=== PATIENT | male | born 1975 | race Two or more races ===

== ENCOUNTER 2016-12-04 19:01 | Inpatient (IN) | payer MEDICAID ==
--- NOTE | 2016-12-04 19:06 | EDPHY ---
H & P HPI/ROS: HPI CHIEF COMPLAINT: GI bleed, chest pain, benzo withdrawal, alcohol withdrawal HISTORY OF PRESENT ILLNESS: This patient is a 41-year-old male, he is incarcerated currently at senior care he was resting yesterday. He presents emergency room stating that he is going to alcohol withdrawal and benzo withdrawal. He takes Klonopin 3 times a day. His last dose was yesterday. His last drink was yesterday. Patient reports to me that he binge drinks vodka he had 2 L yesterday. Additionally he takes Klonopin for "seizures "patient reports to me that he thinks he is going through withdrawal from Klonopin as well as alcohol. Additionally reports that he vomited blood black tarry stools. He does have a history of esophageal ulcers. Patient reports to me additionally he is having some sharp stabbing left-sided chest pain. Denies hallucinations. Past Medical History: GI bleed from a esophageal ulcer, status post blood transfusion, bipolar disorder, anxiety, benzo dependent, history of alcoholism Past Surgical History: No recent surgery Social History: Binge drinks alcohol. Not a daily user. Denies illicit drugs. Family History: Noncontributory. ROS REVIEW OF SYSTEMS: A comprehensive 10 point review of systems is otherwise negative aside from elements mentioned in the history of present illness. Exam Constitutional appears nontoxic noted to be tachycardic, appears tremulous, appears to be going through withdrawal triage nursing summary reviewed, vital signs reviewed, awake/alert. Eyes normal conjunctivae and sclera, EOMI, PERRLA. HENT normal inspection, atraumatic, moist mucus membranes, no epistaxis, neck supple/ no meningismus, no raccoon eyes. Respiratory clear to auscultation bilaterally, normal breath sounds, no respiratory distress, no wheezing. Cardiovascular rate normal, regular rhythm, no murmur, no edema, distal pulses normal. Gastrointestinal soft, non-tender, no rebound, no guarding, normal bowel sounds, no distension, no pulsatile mass. Genitourinary no CVA tenderness. Musculoskeletal no midline vertebral tenderness, full range of motion, no calf swelling, no tenderness of extremities, no meningismus, good pulses, neurovascularly intact. Skin pink, warm, & dry, no rash, skin atraumatic. Neurologic anxious, tremulous, awake, alert and oriented x 3, AAOx3, moves all 4 extremities equally, motor intact, sensory intact, CN II-XII intact, normal cerebellar, normal vision, normal speech. Psychiatric normal mood/affect. Heme/Lymph/Immune no lymphadenopathy. Differential Diagnosis: Includes but is not limited to in a particular order, alcohol draw, benzo withdrawal, dehydration, electrolyte disturbance, acute coronary syndrome, GI bleed Medical Decision Making: Plan for this patient 2 large-bore IVs type and screen , EKG, chest x-ray, check troponin, rectal exam for GI bleed, basic blood work, LFTs Re-evaluation: EKG interpretation by me on record in [facility] system. Impression this is sinus tachycardia rate of 103. I do not appreciate acute ischemic change on this EKG. Unremarkable EKG. Rectal exam performed. Dark black stool. Hemoccult card sent. 2024: Patient's hemoccult test is positive. He did have black tarry stool on rectal exam. ED x-ray chest one view: Negative for acute pulmonary disease. 2034: This patient be admitted for acute GI bleed. Protonix bolus ordered. Protonix drip. Patient typed and screen. 2 IVs. I will consult GI. Additionally received 2 mg IV Ativan for benzo and alcohol draw. He is resting comfortably no complaints. Troponin is negative. Chest x-ray is unremarkable. EKG does not show any acute ischemic change. 2100: Spoke with Gastroenterology Dr. Borrero. Will plan to scope the patient. Request NPO at midnight. Source: Patient Constitutional: Initial Vital Signs Temperature (C) 37.4 C 12/04/16 19:15 Heart Rate 120 H 12/04/16 19:15 Respiratory Rate 18 12/04/16 19:15 Blood Pressure 114/93 H 12/04/16 19:15 O2 Sat (%) 93 12/04/16 19:15 O2 Delivery Mode Room Air Allergies/Adverse Reactions: aspirin Allergy (Severe, Verified 12/04/16 21:15) Lips swell/ Hives Home Medications: Medication Instructions Recorded Acetaminophen [Tylenol 325mg (*)] 325 - 650 mg PO Q6 PRN 12/04/16 Bupropion HCl [Wellbutrin Xl] 300 mg PO DAILY 12/04/16 Ferrous Sulfate [Ferrous Sulf 325 325 mg PO DAILY 12/04/16 MG (*)] Gabapentin [Gabapentin 800 mg] 1,600 mg PO BID 12/04/16 Gabapentin [Gabapentin 800 mg] 800 mg PO DAILY@12 12/04/16 LORazepam [Ativan (*)] 1 mg PO BID PRN 12/04/16 OLANZapine [Zyprexa] 10 mg PO DAILY 12/04/16 Pantoprazole Sodium [Protonix 40mg 40 mg PO DAILY 12/04/16 (*)] QUEtiapine FUMARATE [Seroquel 100 100 mg PO HS PRN 12/04/16 mg (*)] clonazePAM [Clonazepam] 2 mg PO TID 12/04/16 Medical Decision Making - Data Points Laboratory Results: Laboratory Results 12/04/16 19:12 12/04/16 19:12 12/04/16 06:10 Urine Color YELLOW Urine Appearance CLEAR Urine pH 7.0 (5.0-7.5) Ur Specific [place] 1.019 (1.002-1.030) Urine Protein NEGATIVE (NEGATIVE) Urine Ketones NEGATIVE (NEGATIVE) Urine Blood NEGATIVE (NEGATIVE) Urine Nitrate NEGATIVE (NEGATIVE) Urine Bilirubin NEGATIVE (NEGATIVE) Urine Urobilinogen NEGATIVE EU EU (0.2-1.0) Ur Leukocyte Esterase NEGATIVE (NEGATIVE) Urine Glucose NEGATIVE (NEGATIVE) Medications Given: Folic Acid (Folic Acid) 1 mg PO DAILY MARLEN Stop: 06/03/17 08:59 Last Admin: 12/05/16 09:35 Dose: 1 mg Gabapentin (Neurontin) 800 mg PO DAILY@1200 [facility] Stop: 06/03/17 11:59 Last Admin: 12/05/16 12:24 Dose: 800 mg Gabapentin (Neurontin) 1,600 mg PO BID MARLEN Stop: 06/03/17 09:29 Last Admin: 12/05/16 09:44 Dose: 1,600 mg Sodium Chloride (Ns) 1,000 mls @ 100 mls/hr IV CONT MARLEN Stop: 06/02/17 22:14 Last Admin: 12/05/16 09:37 Dose: 1,000 mls Pantoprazole Sodium 80 mg/ (Sodium Chloride) 100 mls @ 10 mls/hr IV Q10H [facility]LEN Stop: 06/03/17 09:14 Last Admin: 12/05/16 09:37 Dose: 100 mls Lorazepam (Ativan Injection) 1 mg IVP Q4HRS PRN PRN Reason: Agitation Stop: 06/02/17 22:04 Last Admin: 12/04/16 23:39 Dose: 1 mg Lorazepam (Ativan) 1 mg PO Q4HRS PRN PRN Reason: Agitation if able to take PO Stop: 06/02/17 22:04 Last Admin: 12/05/16 09:45 Dose: 1 mg Multivitamins (Tab-A-Marcos) 1 each PO DAILY MARLEN Stop: 06/03/17 08:59 Last Admin: 12/05/16 09:35 Dose: 1 each Ondansetron HCl (Zofran Odt) 4 mg PO Q4HRS PRN PRN Reason: Nausea/Vomiting, Use 1st Stop: 06/02/17 22:02 Last Admin: 12/04/16 23:39 Dose: 4 mg Thiamine HCl (Vitamin B-1) 100 mg PO DAILY MARLEN Stop: 06/02/17 22:14 Last Admin: 12/05/16 09:35 Dose: 100 mg Discontinued Medications Sodium Chloride (Ns) 1,000 mls @ 0 mls/hr IV EDNOW ONE; Wide Open PRN Reason: Protocol Stop: 12/04/16 19:22 Last Admin: 12/04/16 19:33 Dose: 1,000 mls Pantoprazole Sodium 80 mg/ (Sodium Chloride) 100 mls @ 10 mls/hr IV Q10H MARLEN Stop: 06/02/17 20:29 Last Admin: 12/05/16 09:54 Dose: Not Given Lorazepam (Ativan Injection) 1 mg IVP EDNOW ONE Stop: 12/04/16 19:22 Last Admin: 12/04/16 19:34 Dose: 1 mg Lorazepam (Ativan Injection) 1 mg IVP EDNOW ONE Stop: 12/04/16 19:27 Last Admin: 12/04/16 19:34 Dose: 1 mg Lorazepam (Ativan Injection) 1 mg IVP EDNOW ONE Stop: 12/04/16 20:40 Last Admin: 12/04/16 21:00 Dose: Not Given Ondansetron HCl (Zofran) 4 mg IVP EDNOW ONE Stop: 12/04/16 19:23 Last Admin: 12/04/16 19:34 Dose: 4 mg Pantoprazole Sodium (Protonix) 40 mg IVP EDNOW ONE Stop: 12/04/16 20:26 Last Admin: 12/04/16 20:44 Dose: 40 mg Pantoprazole Sodium (Protonix) 40 mg IVP BID MARLEN Stop: 06/03/17 08:59 Last Admin: 12/05/16 09:53 Dose: Not Given Departure - Departure Disposition: [facility] Inpatient Acute Clinical Impression: Anxiety Benzodiazepine withdrawal Qualifiers: Complication of substance-induced condition: uncomplicated Qualified Code(s): F13.230 - Sedative, hypnotic or anxiolytic dependence with withdrawal, uncomplicated Alcohol withdrawal Qualifiers: Complication of substance-induced condition: uncomplicated Qualified Code(s): F10.230 - Alcohol dependence with withdrawal, uncomplicated GI bleed Qualifiers: GI bleed type/associated pathology: melena Qualified Code(s): K92.1 - Melena Condition: Fair
--- NOTE | 2016-12-04 19:08 | CPEKG ---
Heart Rate: 103 RR Interval: 583 P-R Interval: 156 QRSD Interval: 96 QT Interval: 324 QTC Interval: 424 P [place]: 37 QRS [place]: 57 T Wave [place]: 8 EKG Severity - OTHERWISE NORMAL ECG - EKG Impression: SINUS TACHYCARDIA Electronically Signed By: Robert Kenny 05-Dec-2016 03:00:34
[2016-12-04] MEDS ORDERED: LORazepam 2 MG/ML INJ IVP ONE ×3 (19:21→20:39)
[2016-12-04] MEDS ORDERED: NS 1,000 ML IV ONE (19:21)
[2016-12-04] MEDS ORDERED: ONDANSETRON 4 MG/2 ML VIAL IVP ONE (19:22)
[2016-12-04 19:30] LABS: % IMMATURE GRANULYOCYTES 0.5 % (0.0-1.1); ABSOLUTE IMMATURE GRANULOCYTES 0.07 10^3/uL (0.00-0.10); ADD DIFF? NO; ADD MORPH? NO; ADD SCAN? NO; ATYPICAL LYMPHOCYTE FLAG 10 (0-99); FRAGMENT RBC FLAG 0 (0-99); HEMATOCRIT 36.2 % (40.0-51.0); HEMOGLOBIN 12.4 g/dL (13.7-17.5); LEFT SHIFT FLG 0 (0-99); LIPEMIA HEMOLYSIS FLAG 90 (0-99); MEAN CELL HEMOGLOBIN 30.1 pg (27.9-34.1); MEAN CELL HEMOGLOBIN CONCENTR. 34.3 g/dL (32.4-36.7); MEAN CELL VOLUME 87.9 fL (81.5-99.8); MEAN PLATELET VOLUME 10.6 fL (8.7-11.7); PLATELET CLUMPS FLAG 10 (0-99); PLATELET COUNT 299 10^3/uL (150-400); RED BLOOD CELL COUNT 4.12 10^6/uL (4.40-6.38); RED CELL DISTRIBUTION WIDTH 15.9 % (11.5-15.2)
[2016-12-04 19:41] LABS: INR 0.99 (0.83-1.16)
[2016-12-04 19:42] LABS: APTT 23.9 SEC (23.0-38.0)
[2016-12-04 19:44] LABS: ALANINE AMINOTRANSFERASE 40 IU/L (21-72); ALKALINE PHOSPHATASE 209 IU/L (38-126); ANION GAP 17 mEq/L (8-16); ASPARTATE AMINOTRANSFERASE 24 IU/L (17-59); BILIRUBIN,TOTAL 0.4 mg/dL (0.1-1.4); BILIRUBIN-CONJUGATED 0.1 mg/dL (0.0-0.5); BILIRUBIN-UNCONJUGATED 0.3 mg/dL (0.0-1.1); CALCIUM 9.9 mg/dL (8.5-10.4); CARBON DIOXIDE 24 mEq/l (22-31); CHLORIDE 104 mEq/L (97-110); CREATININE 0.8 mg/dL (0.7-1.3); GLOMERULAR FILTRATION RATE > 60; GLUCOSE 100 mg/dL (70-100); POTASSIUM 4.4 mEq/L (3.5-5.2); SODIUM 145 mEq/L (134-144); TOTAL PROTEIN 7.9 g/dL (6.3-8.2)
[2016-12-04 19:54] LABS: TROPONIN I < 0.012 ng/mL (0.000-0.034)
[2016-12-04] MEDS ORDERED: PANTOPRAZOLE SODIUM 40 MG VIAL IVP ONE (20:25)
[2016-12-04] MEDS: PANTOPRAZOLE SODIUM 80 MG in NS 100 ML IV SCH (21:40)
[2016-12-04] MEDS ORDERED: ONDANSETRON DISINTEGRATING 4 MG TAB PO PRN (22:03)
[2016-12-04] MEDS ORDERED: ONDANSETRON 4 MG/2 ML VIAL IVP PRN (22:03)
[2016-12-04] MEDS ORDERED: ACETAMINOPHEN 325 MG TAB PO PRN (22:03)
[2016-12-04] MEDS ORDERED: oxyCODONE IR 5 MG TAB PO PRN (22:03)
[2016-12-04] MEDS: THIAMINE HCL 100 MG TAB PO SCH (22:38)
[2016-12-04] MEDS: NS 1,000 ML IV SCH (22:38)
[2016-12-04] MEDS: LORazepam 1 MG TAB PO PRN (22:38)
[2016-12-04] MEDS: LORazepam 2 MG/ML INJ IVP PRN (23:39)
--- NOTE | 2016-12-05 00:07 | PDGENHP ---
History and Physical - Chief Complaint Shaking - History of Present Illness 41 yo M w/ BPD, anxiety, and ETOH abuse presents to ED with shaking. Patient was incarcerated on day of admission and did not have access to his usual medications. He takes Klonopin three times daily and began to note tremulousness just a few hours after going without it. Additionally, he binges ETOH when dealing with social stressors. He drank 2-3 L of vodka each day for the 2 days prior to presentation, which worsened his chronic GI issues. Patient reports hx of esophageal ulcers and occasional melena for 3 years. Melena and hematemesis developed over the last 2 days in the setting of his ETOH binge. Patient is currently asymptomatic aside from mild tremulousness. History Information - Allergies/Home Medication List Allergies/Adverse Reactions: aspirin Allergy (Severe, Verified 12/04/16 21:15) Lips swell/ Hives Home Medications: Acetaminophen [Tylenol 325mg (*)] 325 - 650 mg PO Q6 PRN 12/04/16 [Last Taken Unknown] Bupropion HCl [Wellbutrin Xl] 300 mg PO DAILY 12/04/16 [Last Taken 12/02/16] Ferrous Sulfate [Ferrous Sulf 325 MG (*)] 325 mg PO DAILY 12/04/16 [Last Taken 12/02/16] Gabapentin [Gabapentin 800 mg] 1,600 mg PO BID 12/04/16 [Last Taken 12/02/16] Gabapentin [Gabapentin 800 mg] 800 mg PO DAILY@12 12/04/16 [Last Taken 12/02/16] LORazepam [Ativan (*)] 1 mg PO BID PRN 12/04/16 [Last Taken Unknown] OLANZapine [Zyprexa] 10 mg PO DAILY 12/04/16 [Last Taken 12/02/16] Pantoprazole Sodium [Protonix 40mg (*)] 40 mg PO DAILY 12/04/16 [Last Taken ] QUEtiapine FUMARATE [Seroquel 100 mg (*)] 100 mg PO HS PRN 12/04/16 [Last Taken 12/02/16] clonazePAM [Clonazepam] 2 mg PO TID 12/04/16 [Last Taken 12/02/16] I have personally reviewed and updated: family history, medical history - Past Medical History Additional medical history: Bipolar disorder. Esophageal ulcers. Anxiety - Family History Additional family history: Adopted, does not know - Social History Smoking Status: Never smoked Alcohol Use: Heavy Review of Systems Review of Systems: ROS: 10pt was reviewed & negative except for what was stated in HPI & below Physical Exam Physical Exam: Temp Pulse Resp BP Pulse Ox 37.2 C 104 H 16 130/96 H 93 12/04/16 21:44 12/04/16 21:44 12/04/16 21:44 12/04/16 21:44 12/04/16 21:44 Constitutional: no apparent distress, not in pain Eyes: PERRL, EOMI Ears, Nose, Mouth, Throat: moist mucous membranes, no oral mucosal ulcers Cardiovascular: regular rate and rhythym, no murmur, rub, or gallop Respiratory: no respiratory distress, no rales or rhonchi Gastrointestinal: normoactive bowel sounds, soft, non-tender abdomen Skin: warm, normal color Musculoskeletal: full muscle strength, no muscle tenderness Neurologic: AAOx3, CN II-XII Intact, other (Mild UE fine tremor) Psychiatric: interacting appropriately, not anxious Lab Data & Imaging Review 12/04/16 19:12 12/04/16 19:12 WBC 14.10 10^3/uL (3.80-9.50) H 12/04/16 19:12 RBC 4.12 10^6/uL (4.40-6.38) L 12/04/16 19:12 Hgb 12.4 g/dL (13.7-17.5) L 12/04/16 19:12 Hct 36.2 % (40.0-51.0) L 12/04/16 19:12 MCV 87.9 fL (81.5-99.8) 12/04/16 19:12 MCH 30.1 pg (27.9-34.1) 12/04/16 19:12 MCHC 34.3 g/dL (32.4-36.7) 12/04/16 19:12 RDW 15.9 % (11.5-15.2) H 12/04/16 19:12 Plt Count 299 10^3/uL (150-400) 12/04/16 19:12 MPV 10.6 fL (8.7-11.7) 12/04/16 19:12 Neut % (Auto) 71.9 % (39.3-74.2) 12/04/16 19:12 Lymph % (Auto) 18.9 % (15.0-45.0) 12/04/16 19:12 [place] % (Auto) 7.2 % (4.5-13.0) 12/04/16 19:12 Eos % (Auto) 0.6 % (0.6-7.6) 12/04/16 19:12 Baso % (Auto) 0.9 % (0.3-1.7) 12/04/16 19:12 Nucleat RBC Rel Count 0.0 % (0.0-0.2) 12/04/16 19:12 Absolute Neuts (auto) 10.14 10^3/uL (1.70-6.50) H 12/04/16 19:12 Absolute Lymphs (auto) 2.66 10^3/uL (1.00-3.00) 12/04/16 19:12 Absolute Monos (auto) 1.02 10^3/uL (0.30-0.80) H 12/04/16 19:12 Absolute Eos (auto) 0.08 10^3/uL (0.03-0.40) 12/04/16 19:12 Absolute Basos (auto) 0.13 10^3/uL (0.02-0.10) H 12/04/16 19:12 Absolute Nucleated RBC 0.00 10^3/uL (0-0.01) 12/04/16 19:12 Immature Gran % 0.5 % (0.0-1.1) 12/04/16 19:12 Immature Gran # 0.07 10^3/uL (0.00-0.10) 12/04/16 19:12 PT 13.0 SEC (12.0-15.0) 12/04/16 19:12 INR 0.99 (0.83-1.16) 12/04/16 19:12 APTT 23.9 SEC (23.0-38.0) 12/04/16 19:12 Sodium 145 mEq/L (134-144) H 12/04/16 19:12 Potassium 4.4 mEq/L (3.5-5.2) 12/04/16 19:12 Chloride 104 mEq/L (97-110) 12/04/16 19:12 Carbon Dioxide 24 mEq/l (22-31) 12/04/16 19:12 Anion Gap 17 mEq/L (8-16) H 12/04/16 19:12 BUN 17 mg/dL (7-23) 12/04/16 19:12 Creatinine 0.8 mg/dL (0.7-1.3) 12/04/16 19:12 Estimated GFR > 60 12/04/16 19:12 Glucose 100 mg/dL (70-100) 12/04/16 19:12 Calcium 9.9 mg/dL (8.5-10.4) 12/04/16 19:12 Total Bilirubin 0.4 mg/dL (0.1-1.4) 12/04/16 19:12 Conjugated Bilirubin 0.1 mg/dL (0.0-0.5) 12/04/16 19:12 Unconjugated Bilirubin 0.3 mg/dL (0.0-1.1) 12/04/16 19:12 AST 24 IU/L (17-59) 12/04/16 19:12 ALT 40 IU/L (21-72) 12/04/16 19:12 Alkaline Phosphatase 209 IU/L (38-126) H 12/04/16 19:12 Troponin I < 0.012 ng/mL (0.000-0.034) 12/04/16 19:12 Total Protein 7.9 g/dL (6.3-8.2) 12/04/16 19:12 Albumin 4.0 g/dL (3.5-5.0) 12/04/16 19:12 Lipase 117 IU/L (23-300) 12/04/16 19:12 Stool Occult Bld Scrn POSITIVE (NEGATIVE) H 12/04/16 19:35 Patient ABO/Rh O POSITIVE 12/04/16 19:27 Antibody Screen NEGATIVE 12/04/16 19:27 Visualized and Interpreted Chest x-ray results: Yes Chest X-Ray results: no infiltrate Visualized and Interpreted EKG results: Yes EKG Interpretation: Positive for: other (Sinus tachycardia) Assessment & Plan Assessment: 41 yo M w/ hx of BPD, anxiety, ETOH abuse, and esophageal ulcers presents with BZD withdrawal and GIB. Plan: 1. UGIB - Suspect upper GI source based on hematemesis, melena, and hx of esophageal ulcers. Patient has hx of chronic blood loss but this has worsened over the last 2 days in setting of ETOH binge. - PPI IV BID, mIVF, monitor on telemetry - Maintain NPO, GI consulted for likely EGD tomorrow 2. BZD withdrawal - Symptoms started shortly after not having access to his three times daily Klonopin. We discussed at length the need for him to transition to a different strategy for management of his anxiety. - [facility] protocol - Consider long acting BZD to help wean Klonopin 3. 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 He takes Seroquel, Wellbutrin, and Zyprexa as an outpatient as well as frequent BZDs, which should be phased out of his regimen when possible. 4. Anemia -Mild, 2/2 acute and chronic blood loss. Patient on oral iron, will check ferritin with morning labs. 5. Leukocytosis - Likely reactive 2/2 GIB, monitor. Diet - NPO Ppx - SCDs Code - Full Dispo - Admit to inpatient status noting need for GI evaluation, EGD, and treatment for withdrawal.
[2016-12-05] MEDS: LORazepam 1 MG TAB PO PRN ×4 (04:46→19:32)
[2016-12-05 05:02] LABS: % IMMATURE GRANULYOCYTES 0.3 % (0.0-1.1); ABSOLUTE IMMATURE GRANULOCYTES 0.03 10^3/uL (0.00-0.10); ADD DIFF? NO; ADD MORPH? NO; ADD SCAN? NO; ATYPICAL LYMPHOCYTE FLAG 10 (0-99); FRAGMENT RBC FLAG 0 (0-99); HEMATOCRIT 31.6 % (40.0-51.0); HEMOGLOBIN 10.6 g/dL (13.7-17.5); LEFT SHIFT FLG 0 (0-99); LIPEMIA HEMOLYSIS FLAG 80 (0-99); MEAN CELL HEMOGLOBIN CONCENTR. 33.5 g/dL (32.4-36.7); MEAN CELL VOLUME 89.5 fL (81.5-99.8); MEAN PLATELET VOLUME 10.3 fL (8.7-11.7); PLATELET CLUMPS FLAG 0 (0-99); PLATELET COUNT 238 10^3/uL (150-400); RED BLOOD CELL COUNT 3.53 10^6/uL (4.40-6.38); RED CELL DISTRIBUTION WIDTH 15.9 % (11.5-15.2)
[2016-12-05 05:17] LABS: ALANINE AMINOTRANSFERASE 33 IU/L (21-72); ALBUMIN 3.2 g/dL (3.5-5.0); ALKALINE PHOSPHATASE 164 IU/L (38-126); ANION GAP 11 mEq/L (8-16); ASPARTATE AMINOTRANSFERASE 16 IU/L (17-59); BILIRUBIN,TOTAL 0.6 mg/dL (0.1-1.4); CALCIUM 8.5 mg/dL (8.5-10.4); CARBON DIOXIDE 26 mEq/l (22-31); CHLORIDE 103 mEq/L (97-110); CREATININE 0.8 mg/dL (0.7-1.3); GLOMERULAR FILTRATION RATE > 60; GLUCOSE 79 mg/dL (70-100); MAGNESIUM 1.7 mg/dL (1.6-2.3); POTASSIUM 4.2 mEq/L (3.5-5.2); SODIUM 140 mEq/L (134-144)
--- NOTE | 2016-12-05 05:20 | PDMN ---
Medical Necessity Medical necessity: C/M review: Patient meets INPT criteria under MCG M-180 Gastrointestinal Bleeding, Upper, M-595 Substance-Related Disorders; Acute upper GI bleed, acute benzodiazepine withdrawal, hematemesis, anemia, Hgb 12.4, 10.6, Hct 36.2, 31.6, leukocytosis, WBC 14.10 requiring planned GI consult, likely 12/05/2016 EGD, ongoing NPO, IV Pantoprazole infusion, IV fluids, comorbid bipolar disorder, not having access to chronic Klonopin, ETOH abuse, anxiety, hx esophageal ulcers. anticipates > 2 MN LOS for ongoing med nec for eval and TX of above.
[2016-12-05 05:50] LABS: FERRITIN - BCH 18.9 ng/mL (17.9-464.0)
[2016-12-05 06:24] LABS: COLOR YELLOW; LEUKOCYTE ESTERASE,URINE NEGATIVE (NEGATIVE); NITRITE,URINE NEGATIVE (NEGATIVE)
[2016-12-05] MEDS ORDERED: PANTOPRAZOLE SODIUM 40 MG VIAL IVP SCH (09:00)
[2016-12-05] MEDS ORDERED: PANTOPRAZOLE SODIUM 80 MG in NS 100 ML IV SCH (09:15)
[2016-12-05] MEDS ORDERED: QUEtiapine FUMARATE 100 MG TAB PO PRN ×2 (09:18→12:50)
[2016-12-05] MEDS: MULTIVITAMINS 1 EACH TAB PO SCH (09:35)
[2016-12-05] MEDS: FOLIC ACID 1 MG TAB PO SCH (09:35)
[2016-12-05] MEDS: THIAMINE HCL 100 MG TAB PO SCH (09:35)
[2016-12-05] MEDS: NS 1,000 ML IV SCH ×2 (09:37→19:32)
[2016-12-05] MEDS: GABAPENTIN 400 MG CAP PO SCH ×3 (09:44→19:32)
[2016-12-05] MEDS: PANTOPRAZOLE SODIUM 80 MG in NS 100 ML IV SCH ×2 (09:54→18:13)
--- NOTE | 2016-12-05 11:54 | HOSPPROG ---
Hospitalist Progress Note Assessment/Plan: First encounter with this patient 41 yo male with recent incarceration, hx of alcoholism, admitted for UGIB #UGIB #Acute blood loss Anemia #Acute ETOH WD #Hx of SZ when actively wd from ETOH #Anxiety d/o #bipolar disorder Plan: NPO Scope per GI today. Dr. Borrero to see Cont Protonix Drip IVF CIWA/Ativan Thiamine, Folic Acid, MVI SCD's Full Code Subjective: no further emesis or melena. He is tremulous. no CP or SOB Objective: Vital Signs Temp Pulse Resp BP Pulse Ox 37.3 C 85 17 142/91 H 91 L 12/05/16 08:00 12/05/16 08:00 12/05/16 08:00 12/05/16 08:00 12/05/16 08:00 Laboratory Results 12/05/16 04:46 12/05/16 04:46 12/04/16 12/05/16 12/06/16 05:59 05:59 05:59 Intake Total 2070 Output Total 1100 725 Balance 970 -725 PT 13.0 SEC (12.0-15.0) 12/04/16 19:12 INR 0.99 (0.83-1.16) 12/04/16 19:12 - Physical Exam Constitutional: no apparent distress Eyes: PERRL, EOMI Ears, Nose, Mouth, Throat: moist mucous membranes, hearing normal Cardiovascular: tachycardia, No edema Respiratory: no respiratory distress, no rales or rhonchi Gastrointestinal: normoactive bowel sounds, soft, non-tender abdomen Skin: warm Musculoskeletal: full muscle strength Neurologic: AAOx3 Psychiatric: interacting appropriately, not encephalopathic, thought process linear, anxious ICD10 Worksheet Patient Problems: Problems Problem Status Onset Alcohol withdrawal Acute Anxiety Acute Benzodiazepine withdrawal Acute GI bleed Acute
--- NOTE | 2016-12-05 14:46 | GCON ---
[f rep st] CONSULTATION GASTROINTESTINAL CONSULTATION. DATE OF CONSULTATION: 12/05/2016 REASON FOR CONSULTATION: Hematemesis and melena. HISTORY OF PRESENT ILLNESS: The patient is a 41-year-old gentleman who I was asked to consult on by Dr Longo who was admitted to the hospital last night with an episode of melena and hematemesis of blood clots. He was incarcerated on the day of admission and does have a history of drinking 2-3 L of vodka each day over the last several days prior to his presentation. He does have a history of esophageal ulcers documented on EGD 3 years ago. He has no history of esophageal varices or alcoholic liver disease. He states that he did have black tarry stools 2 days prior to the admission. He does complain of tremulousness this morning as he did on admission. MEDICATIONS: Prior to admission included: Clonazepam 2 mg p.o. t.i.d., Seroquel 100 mg p.o. q.h.s., Protonix 40 mg p.o. daily, Zyprexa 10 mg p.o. daily , lorazepam 1 mg p.o. b.i.d. p.r.n. anxiety, gabapentin 1600 mg p.o. b.i.d., ferrous sulfate 325 mg p.o. daily, Wellbutrin XL 300 mg p.o. daily. ALLERGIES: Aspirin which causes swelling of his lips and hives. PAST MEDICAL HISTORY: Significant for bipolar affective disorder, history of esophageal ulcerations, anxiety, and alcoholism with binge drinking. FAMILY HISTORY: He is adopted. He does not know his biologic family. SOCIAL HISTORY: He does not smoke tobacco. He does consume alcohol regularly though tends to binge drink. He denies any NSAID use. REVIEW OF SYSTEMS: Negative for comprehensive review of systems with the exception of recent hematemesis and black tarry stool, nausea and vomiting. PHYSICAL EXAMINATION: VITAL SIGNS: On my examination today, temperature was 37.2 Celsius, pulse was 79 and regular, blood pressure 144/89, respiratory rate was 18, O2 saturation 91% on room air. GENERAL: He is a well-developed, well- nourished man looking uncomfortable, slightly agitated and tremulous. INTEGUMENT: Clear. No pedal edema. HEENT: Head atraumatic, normocephalic. Pupils equal, round, reactive to light. EOMs intact. Sclerae nonicteric. Nares patent. Mucous membranes moist. Dentition good. NECK: Supple. Trachea was midline. PULMONARY: Lungs clear to percussion and auscultation. CARDIOVASCULAR: Regular rhythm and rate. Normal S1, S2 without murmur. Peripheral pulses strong bilaterally. No pedal edema. GASTROINTESTINAL: Abdomen supple, positive bowel sounds. No liver, spleen tip palpable. No masses or tenderness noted. No fluid wave noted. EXTREMITIES: Without deformity. NEURO: Patient was alert and oriented x3. There were no focal neurologic deficits. Patient was tremulous to exam. LABS: Hemoglobin on admission 12.4, hematocrit 36.2, white count 14.10. With hydration, hemoglobin 10.6, hematocrit 31.6, white count 9.28, RDW elevated at 15.9, platelets 238,000. Pro time 13.0, INR 0.11. Electrolytes normal with a BUN of 14, creatinine of 0.8. AST 16, ALT 33, ALP 164, total bilirubin 0.4, albumin 3.2, lipase 117. Urinalysis normal. Stool was Hemoccult positive. IMPRESSION: 1. Recent acute upper gastrointestinal bleed with hematemesis and melena with a 2 g drop in hemoglobin, now without active GI bleeding today. Differential diagnosis includes alcoholic gastritis versus recurrent esophageal ulcers. Less likely would be esophageal variceal bleed as the patient has had no documented varices in the past. 2. Acute alcoholic binge episode with patient now observed as tremulous, worrisome for alcohol withdrawal syndrome. 3. Normal liver enzymes and pro time, making less likely the patient has [place] cirrhosis. RECOMMENDATIONS: 1. N.p.o., could give clear liquids later today if no evidence of further GI bleeding. 2. Continue with IV PPI drip. 3. Will wait 24 hours to assess for the development of florid DTs (this would make endoscopy higher risk at this time). 4. N.p.o. after midnight. 5. Esophagogastroduodenoscopy in the a.m. with propofol anesthesia, could perform this urgently today if patient has further episodes of bleeding. /[id number]/MODL MTDD
--- NOTE | 2016-12-05 15:35 | ASMTCMCOM ---
CM Note CM Note Notes: 41 year old male admitted for GIB, ETOH W/D, Benzo W/D. He has a hx of Bipolar diso,Anxiety, ETOH abuse, Esophageal ulcers, melana. Patient had been incarcerated and didn't have access to his medications and needed to be admitted. CM to follow for discharge needs. Date Signed: 12/05/2016 03:34 PM Electronically Signed By:Claudia Brink LCSW
[2016-12-06 04:27] LABS: % IMMATURE GRANULYOCYTES 0.2 % (0.0-1.1); ABSOLUTE IMMATURE GRANULOCYTES 0.01 10^3/uL (0.00-0.10); ADD DIFF? NO; ADD MORPH? NO; ADD SCAN? NO; ATYPICAL LYMPHOCYTE FLAG 10 (0-99); FRAGMENT RBC FLAG 0 (0-99); HEMATOCRIT 32.1 % (40.0-51.0); HEMOGLOBIN 10.4 g/dL (13.7-17.5); LEFT SHIFT FLG 0 (0-99); LIPEMIA HEMOLYSIS FLAG 80 (0-99); MEAN CELL HEMOGLOBIN 29.3 pg (27.9-34.1); MEAN CELL HEMOGLOBIN CONCENTR. 32.4 g/dL (32.4-36.7); MEAN CELL VOLUME 90.4 fL (81.5-99.8); MEAN PLATELET VOLUME 10.4 fL (8.7-11.7); PLATELET CLUMPS FLAG 20 (0-99); PLATELET COUNT 221 10^3/uL (150-400); RED BLOOD CELL COUNT 3.55 10^6/uL (4.40-6.38); RED CELL DISTRIBUTION WIDTH 15.5 % (11.5-15.2)
[2016-12-06] MEDS: PANTOPRAZOLE SODIUM 80 MG in NS 100 ML IV SCH (07:36)
[2016-12-06] MEDS: LORazepam 2 MG/ML INJ IVP PRN ×2 (07:36→07:42)
[2016-12-06] MEDS ORDERED: buPROPion XL 150 MG TAB PO SCH (09:00)
[2016-12-06] MEDS ORDERED: OLANZapine 10 MG TAB PO SCH (09:00)
[2016-12-06] MEDS ORDERED: FERROUS SULFATE 325 MG TAB PO SCH (09:00)
--- NOTE | 2016-12-06 10:04 | PDANEPAE ---
ANE History of Present Illness 41 year old male w/ PMHx of EtoH abuse, likely upper GI bleed, anemia, anxiety needing upper endoscopy with anesthesia. ANE Past Medical History - Cardiovascular History Hx Hypertension: No Hx Arrhythmias: No Hx Chest Pain: No Hx Coronary Artery / Peripheral Vascular Disease: No Hx CHF / Valvular Disease: No Hx Palpitations: No - Pulmonary History Hx COPD: No Hx Asthma/Reactive Airway Disease: No Hx Recent Upper Respiratory Infection: No Hx Oxygen in Use at Home: No Hx Sleep Apnea: No Sleep Apnea Screening Result - Last Documented: Negative - Endocrine History Hx Diabetes: No Hypothyroid: No Hyperthyroid: No Obesity: yes, mild - Renal History Hx Renal Disorders: No - Liver History Hx Hepatic Disorders: No - Neurological & Psychiatric Hx Neurological / Psychiatric History Comment: Anxiety - GI History Hx Gastrointestinal Disorders: Yes Gastrointestinal History Comment: PUD / Espophageal ulcer, Upper GI bleed ANE Review of Systems Review of systems is: negative Review of Systems: - Exercise capacity Exercise capacity: >=4 METS ANE Patient History - Allergies Allergies/Adverse Reactions: aspirin Allergy (Severe, Verified 12/04/16 21:15) Lips swell/ Hives - Home Medications Home medications: home medication list seen and reviewed Home Medications: Acetaminophen [Tylenol 325mg (*)] 325 - 650 mg PO Q6 PRN 12/04/16 [Last Taken Unknown] Bupropion HCl [Wellbutrin Xl] 300 mg PO DAILY 12/04/16 [Last Taken 12/02/16] Ferrous Sulfate [Ferrous Sulf 325 MG (*)] 325 mg PO DAILY 12/04/16 [Last Taken 12/02/16] Gabapentin [Gabapentin 800 mg] 1,600 mg PO BID 12/04/16 [Last Taken 12/02/16] Gabapentin [Gabapentin 800 mg] 800 mg PO DAILY@12 12/04/16 [Last Taken 12/02/16] LORazepam [Ativan (*)] 1 mg PO BID PRN 12/04/16 [Last Taken Unknown] OLANZapine [Zyprexa] 10 mg PO DAILY 12/04/16 [Last Taken 12/02/16] Pantoprazole Sodium [Protonix 40mg (*)] 40 mg PO DAILY 12/04/16 [Last Taken ] QUEtiapine FUMARATE [Seroquel 100 mg (*)] 100 mg PO HS PRN 12/04/16 [Last Taken 12/02/16] clonazePAM [Clonazepam] 2 mg PO TID 12/04/16 [Last Taken 12/02/16] - NPO status NPO Status: no food or drink >8 hours - Anes Hx Anes Hx: no prior problems - Smoking Hx Smoking Status: Never smoked - Alcohol Use Alcohol Use: Heavy - Family Anes Hx Family Anes Hx: neg - N/A ANE Labs/Vital Signs - Labs Result Diagrams: 12/06/16 04:06 12/05/16 04:46 - Vital Signs Vital Signs: reviewed preoperatively; see RN documention for details Blood Pressure: 116/86 Heart Rate: 85 Respiratory Rate: 18 O2 Sat (%): 93 Height: 180.34 cm Weight: 98.1 kg ANE Physical Exam - Airway Neck exam: FROM Mallampati Score: Class 2 Mouth exam: normal dental/mouth exam Mouth image: 1 - Capped - Pulmonary Pulmonary: no respiratory distress - Cardiovascular Cardiovascular: regular rate and rhythym - ASA Status ASA Status: II ANE Anesthesia Plan Anesthesia Plan: GA with mask Total IV Anesthesia: Yes
[2016-12-06] MEDS ORDERED: PROPOFOL/EMULSION 500 MG/50 ML BOTTLE IV ONE (10:26)
[2016-12-06] MEDS ORDERED: MIDAZOLAM 2 MG/2 ML VIAL ONE (10:31)
[2016-12-06] MEDS ORDERED: DEXAMETHASONE 4 MG/ML VIAL ONE (10:33)
[2016-12-06] MEDS ORDERED: ONDANSETRON 4 MG/2 ML VIAL ONE (10:33)
[2016-12-06] MEDS ORDERED: fentaNYL 100 MCG/2 ML INJ IVP PRN (10:36)
[2016-12-06] MEDS ORDERED: NALOXONE HCL 0.4 MG/ML INJ IVP PRN (10:36)
[2016-12-06] MEDS ORDERED: LR 500 ML IV PRN (10:36)
--- NOTE | 2016-12-06 11:06 | GIREPORT ---
[facility] Surgical Services - Endoscopy Department Patient Name: Sadiq Jaramillo Procedure Date: 12/06/2016 10:27 AM Patient Type: Inpatient Attending MD/ ER Physician: Trae Borrero MD Procedure: Upper GI endoscopy Indications: Hematemesis, Melena, Acute post hemorrhagic anemia, Nausea with vomitin g Providers: Trae Borrero MD Medicines: Monitored Anesthesia Care Complications: No immediate complications. Description of Procedure: After obtaining informed consent, the endoscope was passed under direct vision. Throughout the procedure, the patient's blood pressure, pulse, and oxygen saturations were monitored continuously. The Endoscope was intro duced through the mouth, and advanced to the second part of duodenum. The [facility] er GI endoscopy was accomplished without difficulty. The patient tolerated th e procedure well. Findings: One superficial esophageal ulcer with no bleeding and no stigmata of re cent bleeding was found at the gastroesophageal junction. The lesion was 10 mm in largest dimension. The entire examined stomach was normal. The examined duodenum was normal. Estimated Blood Loss: Estimated blood loss: none. Post Op Diagnosis: - Non-bleeding esophageal ulcer. - Normal stomach. - Normal examined duodenum. - No specimens collected. Recommendation: - Return patient to hospital poe for possible discharge same day. - Advance diet as tolerated today. - Use Protonix (pantoprazole) 40 mg PO BID for 2 months. Attending Participation: I personally performed the entire procedure. Trae Borrero MD Trae Borrero MD 12/06/2016 11:06:02 AM This report has been signed electronicallyTrae Borrero MD Number of Addenda: 0 Note Initiated On: 12/06/2016 10:27 AM [email or web address]
[2016-12-06] MEDS: GABAPENTIN 400 MG CAP PO SCH ×2 (11:58→12:00)
[2016-12-06] MEDS: THIAMINE HCL 100 MG TAB PO SCH (11:59)
[2016-12-06] MEDS: MULTIVITAMINS 1 EACH TAB PO SCH (11:59)
[2016-12-06] MEDS: FOLIC ACID 1 MG TAB PO SCH (11:59)
[2016-12-06] MEDS: LORazepam 1 MG TAB PO PRN (12:02)
[2016-12-06 14:11] VITALS: RESP 16
--- NOTE | 2016-12-06 14:22 | POSTANESTH ---
Post Anesthetic Evaluation Cardiovascular Status: Normal, Stable, Similar to Pre-Op Cond Respiratory Status: Normal, Stable, Similar to Pre-op Cond. Level of Consciousness/Mental Status: Can Participate in Eval, Alert and Oriented Pain Control: Adequate, Prn Tx Ordered Nausea/Vomiting Control: Adequate, Prn Tx Ordered Complications Possibly Related to Anesthesia: None Noted
[2016-12-06 17:03] VITALS: BP 133/89; PULSE 102; TEMP 99; O2SAT 94
--- NOTE | 2016-12-06 17:04 | PDDCSUM ---
Discharge Summary Discharge Summary: DISCHARGE DIAGNOSES: -acute upper GI bleed -esophageal ulcer -post hemorrhagic anemia -mild alcohol withdrawal, resolved -bipolar disorder -patient currently under custody of [facility] CONSULTANTS: Dr. Trae Borrero PROCEDURES: Esophagogastroduodenoscopy HOSPITAL COURSE SUMMARY: This patient who had been brought to the emergency room from the [facility] was having hematemesis and melenic stool after some vomiting. He did have some post hemorrhagic anemia but was hemodynamically stable and did not require transfusions. He was on once daily Protonix therapy at the time of admission. History with IV Protonix here. EGD showed a nonbleeding esophageal ulcer which is the presumed lesion causing his bleeding at presentation. There were no other lesions in the esophagus stomach or duodenum. At this time the patient is felt stable for discharge from the hospital on twice daily Protonix for at least 8 weeks. He is strongly advised to avoid all alcohol. The patient is currently under custody of the [facility], and will be [facility] the hospital tonight with sugars officers. PENDING TEST RESULTS: The patient is requested HIV and syphilis testing. He is aware that these results will not be available as he leaves the hospital and will need to be forwarded to his physicians at the [facility] and he will follow up with them for the results of these tests. MEDICATION CHANGES: Protonix changed to twice daily FOLLOW-UP PLAN: He sees physicians at the [facility], and will have an appointment with them upon being released from the pen[facility]iary.
[2016-12-06] MEDS ORDERED: PANTOPRAZOLE SODIUM 40 MG TAB PO SCH (21:00)
--- NOTE | 2016-12-07 16:13 | ASDISCHSUM ---
Discharge Information Plan Status:Home with No Needs Medically Cleared to Leave:12/06/2016 Discharge Date:12/06/2016 05:50 PM CM D/C Disposition: ADT D/C Disposition:Home, Routine, Self-Care Projected Discharge Date:12/06/2016 12:00 AM Transportation at D/C: Discharge Delay Reason: Follow-Up Date:12/06/2016 12:00 AM Discharge Slot: Final Diagnosis: Placement Information Patient Contact Information Contact Name:SUZI Relationship: Address: Work Phone: City: [facility] Phone: State/Zip Code: Email: Financial Information Financial Class: Primary Plan Desc:MEDICA[employer] HE[email or web address] CATHI Primary Plan Number:[id number] Secondary Plan Desc: Secondary Plan Number: Assessment Information [facility] CM Progress Note CM Note CM Note Notes: 41 year old male admitted for GIB, ETOH W/D, Benzo W/D. He has a hx of Bipolar diso,Anxiety, ETOH abuse, Esophageal ulcers, melana. Patient had been incarcerated and didn't have access to his medications and needed to be admitted. CM to follow for discharge needs. Date Signed: 12/05/2016 03:34 PM Electronically Signed By:Claudia Brink LCSW Intervention Information
== END 2016-12-06 17:50 | disposition home or self-care (01) | DRG 378 ==
LOC: F2W 21:29
PROVIDERS: ADMIT Internal Medicine; ATTEND Internal Medicine
PROC: 0DJ08ZZ Inspection of Upper Intestinal Tract, Via Natural or Artificial Opening Endoscopic (ICD-10-PCS; principal; 2016-12-06 10:30)
DX: K92.2 Gastrointestinal hemorrhage, unspecified (principal); F10.230 Alcohol dependence with withdrawal, uncomplicated; F13.230 Sedative, hypnotic or anxiolytic dependence with withdrawal, uncomplicated; D62 Acute posthemorrhagic anemia; K22.10 Ulcer of esophagus without bleeding; T42.4X1A Poisoning by benzodiazepines, accidental (unintentional), initial encounter; K92.1 Melena; F41.9 Anxiety disorder, unspecified; F31.9 Bipolar disorder, unspecified; Z87.19 Personal history of other diseases of the digestive system; Z88.6 Allergy status to analgesic agent
CPT/HCPCS: J1100; J2060; J2250; J2405; J2704

== ENCOUNTER 2016-12-28 18:46 | Observation (INO) | payer MEDICAID ==
[2016-12-28] MEDS ORDERED: PANTOPRAZOLE SODIUM 40 MG VIAL IVP ONE (19:11)
[2016-12-28] MEDS ORDERED: NS 1,000 ML IV ONE (19:11)
[2016-12-28 19:24] LABS: % IMMATURE GRANULYOCYTES 0.5 % (0.0-1.1); ABSOLUTE IMMATURE GRANULOCYTES 0.05 10^3/uL (0.00-0.10); ADD DIFF? NO; ADD MORPH? NO; ADD SCAN? NO; ATYPICAL LYMPHOCYTE FLAG 10 (0-99); FRAGMENT RBC FLAG 0 (0-99); HEMATOCRIT 28.8 % (40.0-51.0); HEMOGLOBIN 9.7 g/dL (13.7-17.5); LEFT SHIFT FLG 0 (0-99); LIPEMIA HEMOLYSIS FLAG 80 (0-99); MEAN CELL HEMOGLOBIN 30.3 pg (27.9-34.1); MEAN CELL HEMOGLOBIN CONCENTR. 33.7 g/dL (32.4-36.7); MEAN PLATELET VOLUME 9.6 fL (8.7-11.7); PLATELET CLUMPS FLAG 0 (0-99); PLATELET COUNT 299 10^3/uL (150-400); RED CELL DISTRIBUTION WIDTH 15.8 % (11.5-15.2)
[2016-12-28] MEDS ORDERED: TRANEXAMIC ACID 1,000 MG in NS 100 ML IV ONE (19:25)
[2016-12-28] MEDS ORDERED: TRANEXAMIC ACID 1,000 MG in NS 500 ML IV ONE (19:25)
[2016-12-28] MEDS ORDERED: OCTREOTIDE ACETATE 50 MCG/ML INJ IVP ONE (19:27)
[2016-12-28] MEDS ORDERED: OCTREOTIDE ACETATE 500 MCG in D5W 50 ML IV SCH (19:30)
--- NOTE | 2016-12-28 19:32 | EDPHY ---
H & P Stated Complaint: Vomiting blood. Has been binge drinking. Has varices. - Personal History Current Tetanus/Diphtheria Vaccine: Yes Current Tetanus Diphtheria and Acellular Pertussis (TDAP): Yes - Medical/Surgical History Hx Asthma: No Hx Chronic Respiratory Disease: No Hx Diabetes: No Hx Cardiac Disease: No Hx Renal Disease: No Hx Cirrhosis: No Hx Alcoholism: Yes Hx HIV/AIDS: No Hx Splenectomy or Spleen Trauma: No Other PMH: Bipolar, Manic, ADD-no treatment, Anxiety, Appy, R knee tendon repair , ETOH, Osophagitis. - Social History Smoking Status: Never smoked <Cholo Causey A - Last Filed: 12/28/16 19:31> Source: Patient, Family <Manju Cardenas - Last Filed: 12/28/16 23:53> Time Seen by Provider: 12/28/16 19:01 HPI/ROS: CHIEF COMPLAINT: Hematemesis, weakness HISTORY OF PRESENT ILLNESS: 41-year-old male presents to the emergency department by ambulance with multiple episodes of hematemesis over last 2 days. Patient is a known alcoholic and has been drinking heavily until 3 days ago. He has been having episodes of hematemesis since yesterday. He felt so weak that he was unable to come to the hospital yesterday. He has not had any vomiting since yesterday. He did have an episode of melena yesterday. He has no abdominal pain currently. He denies chest pain or difficulty breathing. The patient was admitted to the hospital 3 weeks ago with upper GI bleed. He was supposed to be taking Protonix. REVIEW OF SYSTEMS: Constitutional: No fever, no chills. Eyes: No double or blurry vision. ENT: No sore throat. Respiratory: No cough, no shortness of breath. Cardiac: No chest pain. Gastrointestinal: As above. No diarrhea. Genitourinary: No dysuria. Musculoskeletal: No neck or back pain. Skin: No rashes. Neurological: No headache. General Appearance: Alert, no distress. Vital signs are stable. Eyes: Pupils equal and round. Extraocular motions are all intact. ENT: Mouth: Mucous membranes moist. Respiratory: No wheezing, rhonchi, or rales, lungs are clear to auscultation. Cardiovascular: Regular rate and rhythm. Gastrointestinal: Abdomen is soft and nontender, no masses, no rebound or guarding, bowel sounds normal. Neurological: Alert and oriented x 3, cranial nerves II through XII grossly intact Skin: Warm and dry, no rashes. Musculoskeletal: Nontender to palpate along the cervical, thoracic or lumbar spine. Neck is supple. Extremities: Full range of motion and no peripheral edema. Psychiatric: Patient is oriented X 3, there is no agitation. (MaitefranciscoManju Ornelas) - Medical/Surgical History PMH: Alcoholism, upper GI bleed (MaitefranciscoManju Ornelas) Constitutional: Initial Vital Signs Temperature (C) 37.1 C 12/28/16 18:52 Heart Rate 110 H 12/28/16 18:52 Respiratory Rate 15 12/28/16 18:52 Blood Pressure 145/73 H 12/28/16 18:52 O2 Sat (%) 98 12/28/16 18:52 O2 Delivery Mode Room Air Allergies/Adverse Reactions: aspirin Allergy (Severe, Verified 12/04/16 21:15) Lips swell/ Hives Home Medications: Medication Instructions Recorded Bupropion HCl [Wellbutrin Xl] 300 mg PO DAILY 12/04/16 Ferrous Sulfate [Ferrous Sulf 325 325 mg PO DAILY 12/04/16 MG (*)] Gabapentin [Gabapentin 800 mg] 1,600 mg PO BID 12/04/16 Gabapentin [Gabapentin 800 mg] 800 mg PO DAILY@12 12/04/16 QUEtiapine FUMARATE [Seroquel 100 50 mg PO HS PRN 12/04/16 mg (*)] clonazePAM [Clonazepam] 2 mg PO TID 12/04/16 Pantoprazole Sodium [Protonix 40mg 40 mg PO BID #120 tab 12/06/16 (*)] lamoTRIgine [LamICTAL] 25 mg PO DAILY 12/28/16 Medical Decision Making <Cholo Causey - Last Filed: 12/28/16 19:31> <Manju Cardenas - Last Filed: 12/28/16 23:53> ED Course/Re-evaluation: I have discussed and evaluated this patient with Manju Cardenas. This patient has known varices and started drinking again. We are treating his upper gastrointestinal bleeding with Protonix IV, octreotide bolus and drip, TXA, type and cross for 2 units, paging GI (Cholo Causey) 41-year-old male presents to the emergency department with upper GI bleed. He is a known alcoholic who has had multiple episodes of hematemesis. He presents today feeling very weak. He has not had any recurring hematemesis today. He had melena 2 days ago. His vital signs are stable. The patient appears well. The case was discussed with Dr. Cholo Causey, secondary supervising physician, who did not directly evaluate the patient but agrees with treatment and plan. Patient was given IV Protonix, IV normal saline, IV octreotide, TXA, and he was type and crossed for [address] with Dr[address] Chad Pascal, on-call community case manager, who will evaluate this patient in the morning. He feels that he is safe for the PCU. The patient had an endoscopy when he was admitted to the hospital 3 weeks ago with similar symptoms. At that time he had evidence of esophageal ulcer which was superficial, however no evidence of esophageal varices per Dr. Chad Pascal. Patient will be admitted to the hospitalist, Dr. Maryam Schmidt to the PCU. (Manju Cardenas) Differential Diagnosis: Including but not limited to upper GI bleed, Delia-Quinteros tear, esophageal varices, anemia (Manju Cardenas) - Data Points Laboratory Results: Laboratory Results 12/28/16 19:18 12/28/16 19:16 12/28/16 12/28/16 12/28/16 19:18 19:16 19:16 WBC RBC Hgb 9.3 g/dL L g/dL (13.7-17.5) Hct 28.6 % L % (40.0-51.0) MCV MCH MCHC RDW Plt Count MPV Neut % (Auto) Lymph % (Auto) [place] % (Auto) Eos % (Auto) Baso % (Auto) Nucleat RBC Rel Count Absolute Neuts (auto) Absolute Lymphs (auto) Absolute Monos (auto) Absolute Eos (auto) Absolute Basos (auto) Absolute Nucleated RBC Immature Gran % Immature Gran # PT 13.8 SEC SEC (12.0-15.0) INR 1.07 (0.83-1.16) APTT 25.2 SEC SEC (23.0-38.0) Sodium Potassium Chloride Carbon Dioxide Anion Gap BUN Creatinine Estimated GFR Glucose Calcium Total Bilirubin Conjugated Bilirubin Unconjugated Bilirubin AST ALT Alkaline Phosphatase Total Protein Albumin Patient ABO/Rh O POSITIVE Antibody Screen NEGATIVE Crossmatch IS Only See Detail 12/28/16 12/28/16 19:16 19:16 WBC 9.72 10^3/uL H 10^3/uL (3.80-9.50) RBC 3.20 10^6/uL L 10^6/uL (4.40-6.38) Hgb 9.7 g/dL L g/dL (13.7-17.5) Hct 28.8 % L % (40.0-51.0) MCV 90.0 fL fL (81.5-99.8) MCH 30.3 pg pg (27.9-34.1) MCHC 33.7 g/dL g/dL (32.4-36.7) RDW 15.8 % H % (11.5-15.2) Plt Count 299 10^3/uL 10^3/uL (150-400) MPV 9.6 fL fL (8.7-11.7) Neut % (Auto) 72.7 % % (39.3-74.2) Lymph % (Auto) 18.1 % % (15.0-45.0) [place] % (Auto) 7.5 % % (4.5-13.0) Eos % (Auto) 0.6 % % (0.6-7.6) Baso % (Auto) 0.6 % % (0.3-1.7) Nucleat RBC Rel Count 0.0 % % (0.0-0.2) Absolute Neuts (auto) 7.06 10^3/uL H 10^3/uL (1.70-6.50) Absolute Lymphs (auto) 1.76 10^3/uL 10^3/uL (1.00-3.00) Absolute Monos (auto) 0.73 10^3/uL 10^3/uL (0.30-0.80) Absolute Eos (auto) 0.06 10^3/uL 10^3/uL (0.03-0.40) Absolute Basos (auto) 0.06 10^3/uL 10^3/uL (0.02-0.10) Absolute Nucleated RBC 0.00 10^3/uL 10^3/uL (0-0.01) Immature Gran % 0.5 % % (0.0-1.1) Immature Gran # 0.05 10^3/uL 10^3/uL (0.00-0.10) PT INR APTT Sodium 138 mEq/L mEq/L (134-144) Potassium 3.8 mEq/L mEq/L (3.5-5.2) Chloride 95 mEq/L L mEq/L (97-110) Carbon Dioxide 29 mEq/l mEq/l (22-31) Anion Gap 14 mEq/L mEq/L (8-16) BUN 17 mg/dL mg/dL (7-23) Creatinine 1.1 mg/dL mg/dL (0.7-1.3) Estimated GFR > 60 Glucose 87 mg/dL mg/dL (70-100) Calcium 9.4 mg/dL mg/dL (8.5-10.4) Total Bilirubin 0.4 mg/dL mg/dL (0.1-1.4) Conjugated Bilirubin 0.0 mg/dL mg/dL (0.0-0.5) Unconjugated Bilirubin 0.4 mg/dL mg/dL (0.0-1.1) AST 37 IU/L IU/L (17-59) ALT 42 IU/L IU/L (21-72) Alkaline Phosphatase 145 IU/L H IU/L (38-126) Total Protein 7.3 g/dL g/dL (6.3-8.2) Albumin 4.0 g/dL g/dL (3.5-5.0) Patient ABO/Rh Antibody Screen Crossmatch IS Only Medications Given: Tranexamic Acid 1,000 mg/ (Sodium Chloride) 510 mls @ 63.75 mls/hr IV ONCE ONE Stop: 12/29/16 03:24 Last Admin: 12/28/16 20:13 Dose: 510 mls Octreotide Acetate 500 mcg/ (Dextrose) 51 mls @ 5 mls/hr IV CONT MARLEN Stop: 06/26/17 19:29 Last Admin: 12/28/16 20:10 Dose: 51 mls Discontinued Medications Sodium Chloride (Ns) 1,000 mls @ 0 mls/hr IV ONCE ONE PRN Reason: Wide Open Stop: 12/28/16 19:12 Last Admin: 12/28/16 19:54 Dose: 1,000 mls Tranexamic Acid 1,000 mg/ (Sodium Chloride) 110 mls @ 660 mls/hr IV ONCE ONE Stop: 12/28/16 19:34 Last Admin: 12/28/16 20:06 Dose: 110 mls Lorazepam (Ativan Injection) 1 mg IVP EDNOW ONE Stop: 12/28/16 19:51 Last Admin: 12/28/16 19:56 Dose: 1 mg Octreotide Acetate (Octreotide Acetate) 50 mcg IVP ONCE ONE Stop: 12/28/16 19:28 Last Admin: 12/28/16 19:58 Dose: 50 mcg Pantoprazole Sodium (Protonix) 40 mg IVP EDNOW ONE Stop: 12/28/16 19:12 Last Admin: 12/28/16 20:01 Dose: 40 mg Departure <Cholo Causey - Last Filed: 12/28/16 19:31> <Manju Cardenas - Last Filed: 12/28/16 23:53> - Departure Disposition: [facility] Inpatient Acute Clinical Impression: Upper GI bleed, Alcoholism Anemia Qualifiers: Anemia type: unspecified type Qualified Code(s): D64.9 - Anemia, unspecified Condition: Fair
[2016-12-28 19:39] LABS: APTT 25.2 SEC (23.0-38.0); INR 1.07 (0.83-1.16); PROTIME(PATIENT) 13.8 SEC (12.0-15.0)
[2016-12-28 19:41] LABS: ALANINE AMINOTRANSFERASE 42 IU/L (21-72); ALKALINE PHOSPHATASE 145 IU/L (38-126); ANION GAP 14 mEq/L (8-16); ASPARTATE AMINOTRANSFERASE 37 IU/L (17-59); BILIRUBIN,TOTAL 0.4 mg/dL (0.1-1.4); BILIRUBIN-UNCONJUGATED 0.4 mg/dL (0.0-1.1); CALCIUM 9.4 mg/dL (8.5-10.4); CARBON DIOXIDE 29 mEq/l (22-31); CHLORIDE 95 mEq/L (97-110); CREATININE 1.1 mg/dL (0.7-1.3); GLOMERULAR FILTRATION RATE > 60; GLUCOSE 87 mg/dL (70-100); POTASSIUM 3.8 mEq/L (3.5-5.2); SODIUM 138 mEq/L (134-144); TOTAL PROTEIN 7.3 g/dL (6.3-8.2)
[2016-12-28] MEDS ORDERED: LORazepam 2 MG/ML INJ IVP ONE (19:50)
[2016-12-28 20:32] LABS: HEMATOCRIT 28.6 % (40.0-51.0); HEMOGLOBIN 9.3 g/dL (13.7-17.5)
[2016-12-28 20:50] LABS: HEMATOCRIT 25.7 % (40.0-51.0); HEMOGLOBIN 8.5 g/dL (13.7-17.5)
[2016-12-28] MEDS ORDERED: ONDANSETRON DISINTEGRATING 4 MG TAB PO PRN (22:39)
[2016-12-28] MEDS ORDERED: ACETAMINOPHEN 325 MG TAB PO PRN (22:39)
[2016-12-28] MEDS ORDERED: ONDANSETRON 4 MG/2 ML VIAL IVP PRN (22:39)
[2016-12-28] MEDS ORDERED: QUEtiapine FUMARATE 50 MG TAB PO PRN (23:15)
[2016-12-29] MEDS: GABAPENTIN 400 MG CAP PO PRN ×2 (00:01→10:24)
[2016-12-29] MEDS: LORazepam 0.5 MG TAB PO PRN ×2 (00:01→10:24)
--- NOTE | 2016-12-29 00:53 | PDGENHP ---
History and Physical - Chief Complaint Hematemesis - History of Present Illness 41 yo M w/ hx of ETOH abuse, depression, and anxiety presents with hematemesis. Patient was admitted in November for UGIB and BZD withdrawal. EGD at that time was notable for an esophageal ulcer and he was prescribed PPI. He has had poor compliance with his PPI since then and underwent a 4 day ETOH binge prior to admission. Then, over the last day he began to notice moderate amounts of blood in his vomit. He also noticed melena on his most recent bowel movement. He is hemodynamically stable and denies any symptoms of withdrawal currently. History Information - Allergies/Home Medication List Allergies/Adverse Reactions: aspirin Allergy (Severe, Verified 12/04/16 21:15) Lips swell/ Hives Home Medications: Bupropion HCl [Wellbutrin Xl] 300 mg PO DAILY 12/04/16 [Last Taken 12/28/16] Ferrous Sulfate [Ferrous Sulf 325 MG (*)] 325 mg PO DAILY 12/04/16 [Last Taken 12/02/16] Gabapentin [Gabapentin 800 mg] 1,600 mg PO BID 12/04/16 [Last Taken 12/28/16] Gabapentin [Gabapentin 800 mg] 800 mg PO DAILY@12 12/04/16 [Last Taken 12/28/16] QUEtiapine FUMARATE [Seroquel 100 mg (*)] 50 mg PO HS PRN 12/04/16 [Last Taken 12/02/16] clonazePAM [Clonazepam] 2 mg PO TID 12/04/16 [Last Taken 12/28/16 12:00] lamoTRIgine [LamICTAL] 25 mg PO DAILY 12/28/16 [Last Taken Unknown] I have personally reviewed and updated: family history, medical history - Past Medical History Additional medical history: Bipolar disorder. Esophageal ulcers. Anxiety - Family History Additional family history: Adopted, does not know - Social History Smoking Status: Never smoked Review of Systems Review of Systems: ROS: 10pt was reviewed & negative except for what was stated in HPI & below Physical Exam Physical Exam: Temp Pulse Resp BP Pulse Ox 37.1 C 86 15 136/91 H 91 L 12/28/16 22:19 12/28/16 22:19 12/28/16 22:19 12/28/16 22:19 12/28/16 22:19 Constitutional: no apparent distress, not in pain Eyes: PERRL, EOMI Ears, Nose, Mouth, Throat: moist mucous membranes, no oral mucosal ulcers Cardiovascular: regular rate and rhythym, no murmur, rub, or gallop Respiratory: no respiratory distress, no rales or rhonchi Gastrointestinal: normoactive bowel sounds, soft, non-tender abdomen Skin: warm, normal color Musculoskeletal: full muscle strength, no muscle tenderness Neurologic: AAOx3, CN II-XII Intact Lab Data & Imaging Review 12/28/16 20:43 12/28/16 19:16 WBC 9.72 10^3/uL (3.80-9.50) H 12/28/16 19:16 RBC 3.20 10^6/uL (4.40-6.38) L 12/28/16 19:16 Hgb 8.5 g/dL (13.7-17.5) L 12/28/16 20:43 Hct 25.7 % (40.0-51.0) L 12/28/16 20:43 MCV 90.0 fL (81.5-99.8) 12/28/16 19:16 MCH 30.3 pg (27.9-34.1) 12/28/16 19:16 MCHC 33.7 g/dL (32.4-36.7) 12/28/16 19:16 RDW 15.8 % (11.5-15.2) H 12/28/16 19:16 Plt Count 299 10^3/uL (150-400) 12/28/16 19:16 MPV 9.6 fL (8.7-11.7) 12/28/16 19:16 Neut % (Auto) 72.7 % (39.3-74.2) 12/28/16 19:16 Lymph % (Auto) 18.1 % (15.0-45.0) 12/28/16 19:16 [place] % (Auto) 7.5 % (4.5-13.0) 12/28/16 19:16 Eos % (Auto) 0.6 % (0.6-7.6) 12/28/16 19:16 Baso % (Auto) 0.6 % (0.3-1.7) 12/28/16 19:16 Nucleat RBC Rel Count 0.0 % (0.0-0.2) 12/28/16 19:16 Absolute Neuts (auto) 7.06 10^3/uL (1.70-6.50) H 12/28/16 19:16 Absolute Lymphs (auto) 1.76 10^3/uL (1.00-3.00) 12/28/16 19:16 Absolute Monos (auto) 0.73 10^3/uL (0.30-0.80) 12/28/16 19:16 Absolute Eos (auto) 0.06 10^3/uL (0.03-0.40) 12/28/16 19:16 Absolute Basos (auto) 0.06 10^3/uL (0.02-0.10) 12/28/16 19:16 Absolute Nucleated RBC 0.00 10^3/uL (0-0.01) 12/28/16 19:16 Immature Gran % 0.5 % (0.0-1.1) 12/28/16 19:16 Immature Gran # 0.05 10^3/uL (0.00-0.10) 12/28/16 19:16 PT 13.8 SEC (12.0-15.0) 12/28/16 19:16 INR 1.07 (0.83-1.16) 12/28/16 19:16 APTT 25.2 SEC (23.0-38.0) 12/28/16 19:16 Sodium 138 mEq/L (134-144) 12/28/16 19:16 Potassium 3.8 mEq/L (3.5-5.2) 12/28/16 19:16 Chloride 95 mEq/L (97-110) L 12/28/16 19:16 Carbon Dioxide 29 mEq/l (22-31) 12/28/16 19:16 Anion Gap 14 mEq/L (8-16) 12/28/16 19:16 BUN 17 mg/dL (7-23) 12/28/16 19:16 Creatinine 1.1 mg/dL (0.7-1.3) 12/28/16 19:16 Estimated GFR > 60 12/28/16 19:16 Glucose 87 mg/dL (70-100) 12/28/16 19:16 Calcium 9.4 mg/dL (8.5-10.4) 12/28/16 19:16 Total Bilirubin 0.4 mg/dL (0.1-1.4) 12/28/16 19:16 Conjugated Bilirubin 0.0 mg/dL (0.0-0.5) 12/28/16 19:16 Unconjugated Bilirubin 0.4 mg/dL (0.0-1.1) 12/28/16 19:16 AST 37 IU/L (17-59) 12/28/16 19:16 ALT 42 IU/L (21-72) 12/28/16 19:16 Alkaline Phosphatase 145 IU/L (38-126) H 12/28/16 19:16 Total Protein 7.3 g/dL (6.3-8.2) 12/28/16 19:16 Albumin 4.0 g/dL (3.5-5.0) 12/28/16 19:16 Patient ABO/Rh O POSITIVE 12/28/16 19:16 Antibody Screen NEGATIVE 12/28/16 19:16 Crossmatch IS Only See Detail 12/28/16 19:16 Assessment & Plan Assessment: 41 yo M w/ hx of ETOH abuse, bipolar disorder, and anxiety presents with hematemesis. Plan: 1. UGIB - Hematemesis experienced after 4 day ETOH binge in the setting of poor PPI compliance. Patient has a long history of esophageal ulcers confirmed most recently on EGD performed here last month. - GI consulted, will see patient tomorrow - Maintain NPO, IV PPI BID - Monitor CBC 2. Acute on chronic anemia - 2/2 above with chronic component from ETOH abuse and iron deficiency. - Monitor CBC, continue Fe supplement 3. ETOH abuse - With occasional binge episodes, most recently a few days prior to admission. This is likely self treatment for poorly controlled mental health issues. - Will not order CIWA for now as no signs of withdrawal, monitor 4. BPD, anxiety - This drives most of patient's medical problems. Recently established w/ doctor in [place] who is attempting to improve patient's control. Will continue home medications. Diet - NPO Code - Full Ppx - SCDs, PPI IV Dispo - Admit to observation status
[2016-12-29 04:02] LABS: % IMMATURE GRANULYOCYTES 0.3 % (0.0-1.1); ABSOLUTE IMMATURE GRANULOCYTES 0.02 10^3/uL (0.00-0.10); ADD DIFF? NO; ADD MORPH? NO; ADD SCAN? NO; ATYPICAL LYMPHOCYTE FLAG 30 (0-99); FRAGMENT RBC FLAG 0 (0-99); HEMATOCRIT 23.9 % (40.0-51.0); HEMOGLOBIN 7.9 g/dL (13.7-17.5); LEFT SHIFT FLG 0 (0-99); LIPEMIA HEMOLYSIS FLAG 80 (0-99); MEAN CELL HEMOGLOBIN 29.9 pg (27.9-34.1); MEAN CELL HEMOGLOBIN CONCENTR. 33.1 g/dL (32.4-36.7); MEAN CELL VOLUME 90.5 fL (81.5-99.8); MEAN PLATELET VOLUME 9.9 fL (8.7-11.7); PLATELET CLUMPS FLAG 0 (0-99); PLATELET COUNT 257 10^3/uL (150-400); RED BLOOD CELL COUNT 2.64 10^6/uL (4.40-6.38); RED CELL DISTRIBUTION WIDTH 15.9 % (11.5-15.2)
[2016-12-29 04:38] LABS: ALANINE AMINOTRANSFERASE 41 IU/L (21-72); ALBUMIN 3.1 g/dL (3.5-5.0); ALKALINE PHOSPHATASE 128 IU/L (38-126); ANION GAP 10 mEq/L (8-16); ASPARTATE AMINOTRANSFERASE 28 IU/L (17-59); BILIRUBIN,TOTAL 0.3 mg/dL (0.1-1.4); CALCIUM 8.5 mg/dL (8.5-10.4); CARBON DIOXIDE 25 mEq/l (22-31); CHLORIDE 102 mEq/L (97-110); CREATININE 0.9 mg/dL (0.7-1.3); GLOMERULAR FILTRATION RATE > 60; GLUCOSE 98 mg/dL (70-100); MAGNESIUM 2.2 mg/dL (1.6-2.3); POTASSIUM 4.3 mEq/L (3.5-5.2); SODIUM 137 mEq/L (134-144); TOTAL PROTEIN 5.8 g/dL (6.3-8.2)
[2016-12-29] MEDS ORDERED: buPROPion XL 150 MG TAB PO SCH (09:00)
[2016-12-29] MEDS ORDERED: lamoTRIgine 25 MG TAB PO SCH (09:00)
[2016-12-29] MEDS ORDERED: FERROUS SULFATE 325 MG TAB PO SCH (09:00)
[2016-12-29] MEDS ORDERED: PANTOPRAZOLE SODIUM 40 MG VIAL IVP SCH (09:00)
--- NOTE | 2016-12-29 09:01 | ASMTCMCOM ---
FANI Powell CM Note Notes: gold reviewed. Patient here with gastric bleeding. He livesindependent with his . Plan unclear at this time.FANI pizarro. Date Signed: 12/29/2016 09:00 AM Electronically Signed By:Amy Minor RN
--- NOTE | 2016-12-29 09:01 | PDANEPAE ---
ANE History of Present Illness EGD for esophageal ulcer and bleeding ANE Past Medical History - Cardiovascular History Hx Hypertension: No Hx Arrhythmias: No Hx Chest Pain: No Hx Coronary Artery / Peripheral Vascular Disease: No Hx CHF / Valvular Disease: No Hx Palpitations: No - Pulmonary History Hx COPD: No Hx Asthma/Reactive Airway Disease: No Hx Recent Upper Respiratory Infection: No Hx Oxygen in Use at Home: No Hx Sleep Apnea: No Sleep Apnea Screening Result - Last Documented: Positive - Endocrine History Hx Diabetes: No - Renal History Hx Renal Disorders: No - Liver History Hx Hepatic Disorders: No - Neurological & Psychiatric Hx Neurological / Psychiatric History Comment: Anxiety/Bi polar/ETOH and medication overuse - GI History Hx Gastrointestinal Disorders: Yes Gastrointestinal History Comment: PUD / Espophageal ulcer, Upper GI bleed ANE Review of Systems Review of Systems: - Exercise capacity Exercise capacity: >=4 METS ANE Patient History - Allergies Allergies/Adverse Reactions: aspirin Allergy (Severe, Verified 12/04/16 21:15) Lips swell/ Hives - Home Medications Home medications: home medication list seen and reviewed Home Medications: Bupropion HCl [Wellbutrin Xl] 300 mg PO DAILY 12/04/16 [Last Taken 12/28/16] Ferrous Sulfate [Ferrous Sulf 325 MG (*)] 325 mg PO DAILY 12/04/16 [Last Taken 12/02/16] Gabapentin [Gabapentin 800 mg] 1,600 mg PO BID 12/04/16 [Last Taken 12/28/16] Gabapentin [Gabapentin 800 mg] 800 mg PO DAILY@12 12/04/16 [Last Taken 12/28/16] QUEtiapine FUMARATE [Seroquel 100 mg (*)] 50 mg PO HS PRN 12/04/16 [Last Taken 12/02/16] clonazePAM [Clonazepam] 2 mg PO TID 12/04/16 [Last Taken 12/28/16 12:00] lamoTRIgine [LamICTAL] 25 mg PO DAILY 12/28/16 [Last Taken Unknown] - NPO status NPO Since - Liquids (Date): 12/29/16 NPO Since - Liquids (Time): 00:00 NPO Since - Solids (Date): 12/29/16 NPO Since - Solids (Time): 00:00 - Anes Hx Anes Hx: no prior problems - Smoking Hx Smoking Status: Never smoked - Alcohol Use Alcohol Use: Heavy - Family Anes Hx Family Anes Hx: none ANE Labs/Vital Signs - Labs Result Diagrams: 12/29/16 03:26 12/29/16 03:26 - Vital Signs Blood Pressure: 112/72 Heart Rate: 70 Respiratory Rate: 18 O2 Sat (%): 97 Height: 180.34 cm Weight: 100.5 kg ANE Physical Exam - Airway Neck exam: FROM Mallampati Score: Class 1 Mouth exam: normal dental/mouth exam - Pulmonary Pulmonary: no respiratory distress - Cardiovascular Cardiovascular: regular rate and rhythym - ASA Status ASA Status: II ANE Anesthesia Plan Anesthesia Plan: GA with mask (R/B/A explained and pt. agrees to proceed)
[2016-12-29 09:02] VITALS: TEMP 98.1
[2016-12-29] MEDS ORDERED: LR 1,000 ML IV ONE (09:02)
[2016-12-29] MEDS ORDERED: PROPOFOL 200 MG/20 ML VIAL ONE ×2 (09:03)
[2016-12-29] MEDS ORDERED: fentaNYL 100 MCG/2 ML INJ ONE (09:04)
[2016-12-29] MEDS ORDERED: LIDOCAINE 2% 100 MG/5 ML SYR ONE (09:04)
--- NOTE | 2016-12-29 09:15 | GCON ---
[f rep st] CONSULTATION Alison Schmidt. CHIEF COMPLAINT: A 41-year-old male with hematemesis, GI bleed. HISTORY OF PRESENT ILLNESS: The patient is a 41-year-old gentleman, who I have been asked to see in consultation by Dr. Alison Schmidt for GI bleeding. Patient had been recently admitted in November of this year with upper GI bleed. He has a significant history of alcohol use. He was found to have an esophageal ulcer on upper endoscopy. He had been placed on a PPI and had not been taking his medica tion on a regular basis. He had been on an alcohol binge 4 days prior to admission. He had noticed some black and tarry stool and some lightheadedness. He presented to the emergency department and wa s hemodynamically stable. Does have a history of drinking 2-3 L of vodka a day. He does have a prio r history of esophageal ulcers and EGD 3 years ago. He has no history of esophageal varices or alcoh olic liver disease. PAST MEDICAL HISTORY: Remarkable for bipolar disorder, erosive esophagitis, esophageal ulcerations, anxiety, alcoholism. ALLERGIES: Aspirin. FAMILY HISTORY: Adopted. Negative as it pertains to chief complaint. SOCIAL HISTORY: He is a nonsmoker. Does consume alcohol. Has a prior history of illicit drug use w ith cocaine. MEDICATIONS: Prior to admission included clonazepam 2 mg t.i.d., Seroquel 100 mg q.h.s., Protonix 40 mg daily, Zyprexa 10 mg daily, Lorazepam 1 mg b.i.d., gabapentin 1600 mg b.i.d., ferrous sulfate 325 mg daily, and Wellbutrin XL 300 mg daily. REVIEW OF SYSTEMS: Negative for 10 systems other than mentioned in HPI. PHYSICAL EXAM: VITAL SIGNS: 122/72, heart rate of 70, respiratory rate 18, 97% sat, 36.9. GENERAL: This is a pleasant gentleman lying in bed in no acute distress. HEENT: Normocephalic atraumatic. EOMI. NECK: Supple. No cervical adenopathy. No thyromegaly. Mucous membranes moist. LUNGS: Cl ear. CARDIAC: Normal S1, S2 without murmur. ABDOMEN: Without tenderness. No hepatosplenomegaly. EXTREMITIES: Without clubbing, cyanosis, edema. SKIN: Warm, dry, intact. NEURO: Nonfocal. PSYC H: Alert and oriented x3 with normal affect. LABORATORY DATA: Hemoglobin 7.9, hematocrit 23.9, PTT of 13.8, INR of 1.07, PTT of 25.2. Serum sodi um 137, potassium 4.3, chloride 102, CO2 25, BUN of 13, alkaline phosphatase 128, AST of 28, ALT of 4 1. IMPRESSION: A 41-year-old gentleman with history of significant alcohol use, who presents after a bi nge of alcohol. Patient with gastrointestinal bleeding with melena, lightheadedness, dizziness, drop in hematocrit. The patient does have a prior history of severe erosive esophagitis. RECOMMENDATIONS: 1. Admit to the hospital. IV hydration. Type and cross. Serial H and H, IV Protonix 80 mg bolus f or 8 mg/hour. 2. Proceed with urgent endoscopy. Will follow with you. /[id number]/MODL
[2016-12-29] MEDS ORDERED: HYDROCODONE/APAP 5/325 TAB PO PRN (09:23)
[2016-12-29] MEDS ORDERED: ONDANSETRON 4 MG/2 ML VIAL IVP PRN (09:23)
[2016-12-29] MEDS ORDERED: MEPERIDINE 25 MG/ML SYR IVP PRN (09:23)
[2016-12-29] MEDS ORDERED: PROMETHAZINE HCL 25 MG/ML INJ IVP PRN (09:23)
[2016-12-29] MEDS ORDERED: DEXAMETHASONE 4 MG/ML VIAL IVP PRN (09:23)
[2016-12-29] MEDS ORDERED: METOCLOPRAMIDE 10 MG/2 ML VIAL IVP PRN (09:23)
[2016-12-29] MEDS ORDERED: NALOXONE HCL 0.4 MG/ML INJ IVP PRN (09:23)
[2016-12-29] MEDS ORDERED: fentaNYL 100 MCG/2 ML INJ IVP PRN (09:23)
[2016-12-29] MEDS ORDERED: LR 500 ML IV PRN (09:23)
[2016-12-29] MEDS ORDERED: ALBUTEROL 3 ML DEYVIAL IH PRN (09:23)
--- NOTE | 2016-12-29 09:23 | POSTANESTH ---
Post Anesthetic Evaluation Cardiovascular Status: Normal, Stable Respiratory Status: Normal, Stable Level of Consciousness/Mental Status: Can Participate in Eval Pain Control: Adequate, Prn Tx Ordered Nausea/Vomiting Control: Adequate, Prn Tx Ordered Complications Possibly Related to Anesthesia: None Noted
--- NOTE | 2016-12-29 09:23 | GIREPORT ---
Formerly [facility] Surgical Services - Endoscopy Department Patient Name: Sadiq Jaramillo Procedure Date: 12/29/2016 9:10 AM Patient Type: Inpatient Attending MD/ ER Physician: Chad Pascal MD Procedure: Upper GI endoscopy Indications: Acute post hemorrhagic anemia, Melena Providers: Chad Pascal MD Medicines: Sedation Required Anesthesia Staff Assistance, General Anesthesia Complications: No immediate complications. Description of Procedure: After obtaining informed consent, the endoscope was passed under direct vision. Throughout the procedure, the patient's blood pressure, pulse, and oxygen saturations were monitored continuously. The Endoscope was intro duced through the mouth, and advanced to the second part of duodenum. The [facility] er GI endoscopy was accomplished without difficulty. The patient tolerated th e procedure well. Findings: LA Grade D (one or more mucosal breaks involving at least 75% of esopha geal circumference) esophagitis with no bleeding was found in the lower thir d of the esophagus. Biopsies were taken with a cold forceps for histology. A small hiatal hernia was present. The entire examined stomach was normal. Biopsies were taken with a cold forceps for histology. A medium amount of food (residue) was found in the gastric body. The examined duodenum was normal. Estimated Blood Loss: Estimated blood loss: none. Post Op Diagnosis: - LA Grade D reflux esophagitis. (suspect from recurrent vomiting an retching from ETOH) Biopsied. - Small hiatal hernia. - Normal stomach. Biopsied. - A medium amount of food (residue) in the stomach. - Normal examined duodenum. Recommendation: - Advance diet as tolerated. - Use Protonix (pantoprazole) 40 mg PO BID. - Await pathology results. - Abstain from ETOH - Recommend inpatient drug and alcohol rehab. Will sign off. Please talib l with further questions. - Thank you for allowing me to participate in the care of your patient. Attending Participation: I personally performed the entire procedure. Chad Pascal MD Chad Pascal MD 12/29/2016 9:22:20 AM This report has been signed electronicallyStfany Pascal MD Number of Addenda: 0 Note Initiated On: 12/29/2016 9:10 AM [email or web address]
[2016-12-29 09:52] LABS: HEMATOCRIT 24.3 % (40.0-51.0); HEMOGLOBIN 8.2 g/dL (13.7-17.5)
[2016-12-29] MEDS ORDERED: PNEUMOCOCCAL 0.5ML VACCINE VIAL IM ONE (10:08)
[2016-12-29 10:11] VITALS: BP 122/80; PULSE 80; RESP 18; O2SAT 95
[2016-12-29] MEDS ORDERED: TDAP ADULT 0.5 ML INJ (BOOSTRIX) IM ONE (10:16)
--- NOTE | 2016-12-29 11:09 | ASMTCMCOM ---
CM Note CM Note Notes: Patient to discharge home. Provided with Medicaid list of alcohol treatment options in the area. He reports his s.o and he himself suffer from substance abuse, moved to area 2 month ago from [place] hoping to have better success with quiting alcohol. He is connected with [facility] as well. Plan home independent with outpatient follow up. CM available should other needs arise. Date Signed: 12/29/2016 11:09 AM Electronically Signed By:Amy Minor RN
--- NOTE | 2016-12-29 15:01 | ASDISCHSUM ---
Discharge Information Plan Status:Home with No Needs Medically Cleared to Leave:12/28/2016 Discharge Date:12/29/2016 11:35 AM CM D/C Disposition: ADT D/C Disposition:Home, Routine, Self-Care Projected Discharge Date:12/29/2016 12:00 AM Transportation at D/C: Discharge Delay Reason: Follow-Up Date:12/29/2016 12:00 AM Discharge Slot: Final Diagnosis: Placement Information Patient Contact Information Contact Name:SUZI Relationship: Address:[address] Work Phone: [facility]:[place] Alternate Phone: [facility]/Zip Code:[place] [address] Email: Financial Information Financial Class: Primary Plan Desc:MEDICA[employer]ALTH [employer]PERATOR Primary Plan Number:[id number] Secondary Plan Desc: Secondary Plan Number: Assessment Information LACE LACE Length of stay for Answers: Less than 1 day current admission Acuity / Level of Care Answers: Was the patient admitted to hospital via the emergency department? Yes: Comorbidities - select Answers: Moderate or severe liver all that apply disease or renal disease Emergency dept visits in Answers: 1 last 6 months Score: 8 Date Signed: 12/29/2016 08:56 AM Electronically Signed By:Amy Minor RN [facility] FANI Progress Note CM Note CM Note Notes: gold reviewed. Patient here with gastric bleeding. He livesindependent with his . Plan unclear at this time.FANI pizarro. Date Signed: 12/29/2016 09:00 AM Electronically Signed By:Amy Minor RN [facility] CM Progress Note CM Note CM Note Notes: Patient to discharge home. Provided with Medicaid list of alcohol treatment options in the area. He reports his s.o and he himself suffer from substance abuse, moved to area 2 month ago from [place] hoping to have better success with quiting alcohol. He is connected with [facility] as well. Plan home independent with outpatient follow up. CM available should other needs arise. Date Signed: 12/29/2016 11:09 AM Electronically Signed By:Amy Minor RN Intervention Information
--- NOTE | 2016-12-29 17:02 | GDS ---
[f rep st] DISCHARGE SUMMARY DISCHARGE DIAGNOSES: 1. Upper gastrointestinal bleed due to erosive esophagitis. 2. Alcoholism. 3. Severe anxiety with chronic high-dose benzodiazepine use. 4. Bipolar. HISTORY: The patient is a 41-year-old male, who is a known alcoholic although abstains for most of h is life, but with infrequent binge episodes every few weeks. He presented after a 4-day binge which caused severe nausea and vomiting. He subsequently developed an upper GI bleed, and Gastroenterology was consulted. EGD showed erosive esophagitis probably due to this vomiting. He is also taking hig h doses of benzodiazepines, including Klonopin 2 mg 3 times a day and Ativan 1 mg p.o. b.i.d. These were prescribed to him and [place]. He has recently moved to [place] is now being seen at [facility]. They are working with him on a plan for his psychiatric disease that does not invo lve these high doses of benzodiazepines. Prior to admission, he underwent alcohol and benzodiazepine withdrawal at home which he self managed. He has not demonstrated any further evidence of withdrawa l from either of these substances during his hospitalization here. I strongly recommended, since he is currently off benzodiazepines, that he not resume them and continue to try non-benzodiazepine alte rnatives under the direction of [facility]. Gastroenterology recommended proton pump inhibitor b.i.d. Biopsy from procedures is pending and martha jeff be followed up as an outpatient. DISCHARGE MEDICATIONS: Please see computer record for full detailed list. New medication at discharge: Protonix 40 mg p.o. b.i.d. Discontinued medications: Clonazepam 2 mg p.o. t.i.d.. ADDITIONAL DISCHARGE INSTRUCTIONS: 1. Biopsy is pending. Please follow up results with Gastroenterology. 2. Alcohol cessation strongly advised and counseled. 3. Benzodiazepine cessation strongly advised and counseled. 4. Alcohol resources were given to him prior to discharge. 5. Follow up with primary care, which has already been locally established. Patient was seen and examined by me on the day of discharge. /[id number]/MODL
== END 2016-12-29 11:35 | disposition home or self-care (01) ==
LOC: F2W 22:04
PROVIDERS: ADMIT Hospitalist; ATTEND Hospitalist
PROC: 0DB68ZX Excision of Stomach, Via Natural or Artificial Opening Endoscopic, Diagnostic (ICD-10-PCS; principal; 2016-12-29 09:00)
PROC: 0DB38ZX Excision of Lower Esophagus, Via Natural or Artificial Opening Endoscopic, Diagnostic (ICD-10-PCS; principal; 2016-12-29 09:00)
DX: K22.11 Ulcer of esophagus with bleeding (principal); F10.20 Alcohol dependence, uncomplicated; F41.9 Anxiety disorder, unspecified; K44.9 Diaphragmatic hernia without obstruction or gangrene; D50.0 Iron deficiency anemia secondary to blood loss (chronic); F19.90 Other psychoactive substance use, unspecified, uncomplicated; F31.9 Bipolar disorder, unspecified; Z23 Encounter for immunization
CPT/HCPCS: 43239; 90471; 96365; 96366; 96368; 96375; 99285; G0378; G0009; J0171; J2001; J2060; J2353; J2354; J2704; J3010